=== PATIENT | female | born 1950 | race Caucasian/White ===

== ENCOUNTER 2020-06-13 07:36 | Day surgery (SDC) | payer MEDICARE, OTHER, SELFPAY ==
[2020-06-06 12:38] VITALS: BMI 29.2
--- NOTE | 2020-06-09 11:19 | MHC.SHP ---
Pre-Procedural Eval Section A The patient is an INPATIENT: No The History & Physical has been completed within 30 days and I have reviewed it.: Yes Section B Chief Complaint: Cataract Right Eye Allergies: Allergies Allergy/AdvReac Type Severity Reaction Status Date / Time Lipitor Allergy Unknown Itching Uncoded 06/06/20 12:31 Plan Diagnosis/Plan: Unchanged Patient has been examined and remains a candidate for the planned procedure
--- NOTE | 2020-06-10 13:43 | HO.ANESPROP2 ---
Documented by User: Antionette Negron 06/10/20 13:47 HPI - Anesthesia Eval Consult details Narrative: 69yo F for cataract PCP cleared REPLACED BY [facility] Past Medical History Medical History Elevated cholesterol GERD (gastroesophageal reflux disease) History of bradycardia HTN (hypertension) Sleep apnea Surgical History Surgical History History of ankle surgery Hx of colonoscopy Social History Social History Are you a primary health care marketing specialist to a significant other at home: No Do you presently have visiting nurse or other home services: No Smoking Status: Former smoker Smoking Quit Date: 40 yrs ago Use of substances other than those prescribed or required for medical reasons: No Have you been hit, kicked, punched, or otherwise hurt by someone within the past year? If so, by whom?: No Advance Directives: No Advance Directives Information Provided: No Advance Directives on File: No Meds Allergies Allergy/AdvReac Type Severity Reaction Status Date / Time Lipitor Allergy Unknown Itching Uncoded 06/06/20 12:31 Home Medications Medication Instructions Recorded Confirmed Type aspirin [Aspir-81] 81 mg PO DAILY 06/06/20 06/06/20 History bisoprolol fumarate 10 mg PO DAILY 06/06/20 06/06/20 History famotidine [Pepcid AC] 20 mg PO DAILY 06/06/20 06/06/20 History hydrochlorothiazide 12.5 mg PO DAILY 06/06/20 06/06/20 History lovastatin 20 mg PO DAILY 06/06/20 06/06/20 History Exam Exam Date and Time: June 10, 2020 1343 Height,Weight and Vital Signs: Height 5 ft 3 in Weight 74.843 kg Pertinent Lab Results Pertinent Lab Results: [facility] WNL 03/2020 from outside provider Narrative Narrative: EKG 05/2020: SB@50 Assessment and Plan Assessment Anesthesia Assessment: Chart Reviewed Documented by User: Lisa Shankar 06/13/20 09:16 REPLACED BY [facility] Past Medical History Medical History Elevated cholesterol GERD (gastroesophageal reflux disease) History of bradycardia HTN (hypertension) Sleep apnea Surgical History Surgical History History of ankle surgery Hx of colonoscopy Social History Social History Are you a primary health care marketing specialist to a significant other at home: No Do you presently have visiting nurse or other home services: No Smoking Status: Former smoker Smoking Quit Date: 40 yrs ago Use of substances other than those prescribed or required for medical reasons: No Have you been hit, kicked, punched, or otherwise hurt by someone within the past year? If so, by whom?: No Advance Directives: No Advance Directives Information Provided: No Advance Directives on File: No Meds Allergies Allergy/AdvReac Type Severity Reaction Status Date / Time Lipitor Allergy Unknown Itching Uncoded 06/06/20 12:31 Home Medications Medication Instructions Recorded Confirmed Type aspirin [Aspir-81] 81 mg PO DAILY 06/06/20 06/06/20 History bisoprolol fumarate 10 mg PO DAILY 06/06/20 06/06/20 History famotidine [Pepcid AC] 20 mg PO DAILY 06/06/20 06/06/20 History hydrochlorothiazide 12.5 mg PO DAILY 06/06/20 06/06/20 History lovastatin 20 mg PO DAILY 06/06/20 06/06/20 History Exam Airway Mallampati Class: I TM Dist: >3cm Neck ROM: Full Loose/Missing/Broken Teeth: No Heart: juan pablo, reg rhythm Lungs: cta Assessment and Plan Assessment Anesthesia Assessment: Anesthesia Plan Discussed and Chart Reviewed Final Anesthetic Review NPO: Yes ASA Class: II Final Preanesthetic Review: Meds/Allgs Chart Reviewed, Consent Obtained/Reviewed and Anes Risks/Benef Reviewed Patient Risk: Low Procedure Risk: Low Anesthetic Plan Anesthetic Plan: MAC: Disposition: Standard PACU
[2020-06-13] MEDS: Tetracaine HCl/PF 0.5% Oph Sol 4 ML DROPS 1 DROP EYE-RIGHT (08:58)
[2020-06-13] MEDS: Tropicamide 1 % Ophth Sol 3 ML BTL 1 DROP EYE-RIGHT ×3 (09:00→09:07)
[2020-06-13 09:14] VITALS: BP 146/72; PULSE 50; RESP 18; TEMP 36.6; O2SAT 97
--- NOTE | 2020-06-13 09:40 | HO.PNOPHT ---
Ophthalmology Procedure Procedure Ophthalmology Viscoelastic: Dhara Rodrigues Dual Pack Pro Ophthalmology Lenses: TECNIS [id number] (14.5) Procedure Notes: PREOPERATIVE DIAGNOSIS: Decreased visual acuity right eye secondary to cataract POSTOPERATIVE DIAGNOSIS: Same PROCEDURE: Right cataract extraction with intraocular lens insertion SURGEON: Juan Prasad M.D. ANESTHESIA: Topical/MAC ESTIMATED BLOOD LOSS: None COMPLICATIONS: None After obtaining informed consent, the patient was brought to the operating room suite and placed in the supine position. After adequate sedation per anesthesia, topical drops of Tetracaine were given to the right eye. The eye was then prepped and draped in the usual sterile fashion. The operating room microscope was then positioned over the operative eye and a lid speculum placed. A paracentesis was created. Viscoelastic was then instilled into the anterior chamber. A three plane incision was then created temporally, utilizing a 2.85 mm keratome. Capsulotomy forceps were then utilized to create a circular tear capsulotomy. Hydrodissection and hydrodelineation were carried out until adequate mobilization of the nucleus occurred. Phacoemulsification was then utilized to remove the dense central nucleus followed by removal of the cortical material utilizing the automated aspiration irrigation unit. Viscoelastic was instilled into the posterior capsular bag followed by placement of a posterior chamber intraocular lens without difficulty. The residual Viscoelastic was then removed utilizing the automated IA machine. The wound was checked and found to be watertight. The patient tolerated the procedure well and the lid speculum was removed. Intracameral injection of Vigamox 0.1 mL followed by a subtenon injection of Kenalog-40 0.2 mL were administered. The patient will be seen in the a.m.
[2020-06-13 09:44] VITALS: BP 123/60; PULSE 51; RESP 18; TEMP 36.3; O2SAT 96
--- NOTE | 2020-06-13 09:48 | PC.NURSE ---
Pt receiv ed 450 ml LR intraop
== END 2020-06-13 10:15 | disposition home or self-care (01) ==
PROVIDERS: PCP Internal Medicine; Visit Provider Ophthalmology
PROC: (CPT 66985; principal; 2020-06-13 09:40)
DX: H25.11 Age-related nuclear cataract, right eye (principal); H52.4 Presbyopia; H40.013 Open angle with borderline findings, low risk, bilateral; Z83.511 Family history of glaucoma; I10 Essential (primary) hypertension; Z87.891 Personal history of nicotine dependence; Z79.899 Other long term (current) drug therapy
CPT/HCPCS: 66984; J2250; J3010; J3300; V2632